=== PATIENT | female | born 1950 | race Hispanic/Latino ===

== ENCOUNTER → 2025-04-27 | Outpatient (CLI) | payer OTHER, MEDICAID ==
[~2025-04-27] MED LIST: GADOTERATE MEGLUMINE 10 MMOL/20 ML VIAL IV ONE
--- NOTE | 2025-04-27 12:59 | HMCIMG ---
Examination: MRI of the abdomen without contrast, MRCP Clinical history: Abnormal serum liver enzymes Comparison: None Findings: Multiplanar, multisequence MR images of the liver with MRCP images created and made available for interpretation. There is hepatomegaly; the right hepatic lobe measures up to 17.7 cm in the craniocaudal dimension. There is loss of signal between the in phase and out of phase sequences suggesting hepatic steatosis. There is no focal hepatic abnormality or intrahepatic biliary ductal dilatation. There is a single gallstone layering dependently within the gallbladder body with overall dimensions of 0.8 x 0.6 cm. There is no gallbladder wall thickening. There is no pericholecystic free fluid. The common bile duct is normal in caliber throughout its course without MR evidence for choledocholithiasis. The main pancreatic duct is also normal in caliber. There is no focal pancreatic abnormality appreciated. There is no MRI evidence for pancreatitis. Subcentimeter cyst within the right kidney. The kidneys, and bilateral adrenal glands are otherwise within normal limits. Presumed subcentimeter cyst within the spleen. Visualized bowel loops are normal in caliber. There is no ascites or lymphadenopathy. There is appropriate bone marrow signal within the visualized bones. 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 Impression: Hepatomegaly and hepatic steatosis. Cholelithiasis without MR evidence for cholecystitis. Intrahepatic and extrahepatic bile ducts are normal in caliber. No MR evidence for choledocholithiasis. /[place]
== END | disposition home or self-care (01) ==
LOC: RAH 07:47
PROVIDERS: ATTEND Internal Medicine Gastroenterology
DX: K80.20 Calculus of gallbladder without cholecystitis without obstruction (principal); K76.0 Fatty (change of) liver, not elsewhere classified; R16.0 Hepatomegaly, not elsewhere classified; R74.9 Abnormal serum enzyme level, unspecified
CPT/HCPCS: 74183; A9575